=== PATIENT | female | born 1995 | race Caucasian/White ===

== ENCOUNTER 2022-09-15 10:54 | Outpatient (CLI) | payer OTHER, SELFPAY ==
[2022-09-15 12:08] LABS: Basophils Absolute Auto 0.01 K/uL (0.00-0.30); Basophils Percent Auto 0.2 % (0.0-3.0); Eosinophils Absolute Auto 0.06 K/uL (0.00-0.50); Eosinophils Percent Auto 1.3 % (0.0-7.0); Hematocrit 42.2 % (33.0-51.0); Lymphocytes Absolute Auto 1.54 K/uL (0.90-2.90); Mean Corpuscular HGB Conc 33 gm/dL (32-36); Mean Corpuscular Hemoglobin 29 pg (26-34); Mean Corpuscular Volume 87 fL (80-100); Monocytes Absolute Auto 0.41 K/UL (0.00-0.90); Monocytes Percent Auto 9.1 % (0.0-11.0); Neutrophils Absolute Auto 2.51 K/uL (1.7-7.0); Neutrophils Percent Auto 55.4 % (42.0-72.0); Platelet Count* 313 K/uL (140-440); Red Blood Count 4.83 m/uL (4.00-5.20); White Blood Count* 4.53 K/uL (4.50-11.00)
[2022-09-15 12:12] LABS: Appearance Urine Clear (Clear); Bilirubin Urine Negative (Negative); Blood Urine Negative (Negative); Color Urine Yellow (Yellow); Glucose Urine Negative (Negative); Ketones Urine Negative (Negative); Leukocyte Esterase Urine Negative (Negative); Nitrite Urine Negative (Negative); Protein Urine Negative (Negative); Ur HCG Qualitative* Negative (Negative); Urobilinogen Urine 0.2 (0.2-1.0)
[2022-09-15 12:22] LABS: Slide Review Reflex No
[2022-09-15 16:20] LABS: Albumin* 4.7 g/dL (3.3-5.0)
[2022-09-15 16:21] LABS: Chloride* 105 mmol/L (96-114); Potassium* 4.5 mmol/L (3.6-5.1); Sodium* 140 mmol/L (135-149)
[2022-09-15 16:23] LABS: Alkaline Phosphatase* 73 U/L (40-150); Amylase* 67 U/L (18-89); Aspartate Amino Transferase* 31 U/L (12-35); Bilirubin Total* 0.5 mg/dL (0.1-1.5); Blood Urea Nitrogen* 14 mg/dL (5-24); Carbon Dioxide* 27 mmol/L (20-32); Creatinine* 0.8 mg/dL (0.5-1.5); Estimated Glomerular Filt Rate 102 ml/min; Total Protein* 7.6 g/dL (6.0-8.3)
[2022-09-15 16:24] LABS: Alanine Aminotransferase* 19 U/L (4-35); Calcium* 9.7 mg/dL (8.4-10.6); Cholesterol* 218 mg/dL (90-199); Glucose* 84 mg/dL (60-115); HDL Cholesterol* 50 mg/dL (>=50); Lipase* 144 U/L (23-300)
[2022-09-15 16:25] LABS: LDL Cholesterol Calculated 151 mg/dL (<100); Triglycerides* 81 mg/dL (40-149)
== END 2022-09-15 10:55 | disposition home or self-care (01) ==
PROVIDERS: PCP Physician Assistant Medical; Visit Provider Family Medicine
DX: R10.9 Unspecified abdominal pain (principal); E78.5 Hyperlipidemia, unspecified; F31.9 Bipolar disorder, unspecified
CPT/HCPCS: 80053; 80061; 81003; 81025; 82150; 83690; 84443; 85025